=== PATIENT | female | born 1955 ===

== ENCOUNTER → 2020-07-01 | Outpatient (CLI) | payer MEDICARE ==
[~2020-07-01] MED LIST: ZOLPIDEM 5 MG TABLET. PO ONE
--- NOTE | 2020-07-02 09:22 | SLEEP ---
DATE OF STUDY: 07/01/2020 ATTENDING PHYSICIAN: Dr. Jeffrey. The patient is 64 years old who weighs 235 pounds with a BMI of 40. The patient underwent split night study performed at [facility]. During the night study, the patient spent 448 minutes in bed and slept for 366 minutes with a sleep efficiency of 82%. Sleep latency was 50 minutes with an absent REM sleep. Sleep architecture showed increased stage 1 and stage 2 sleep, normal slow wave and absent REM sleep. During the initial diagnostic portion of the study, the patient slept for 91 minutes. During that time, there were 1 obstructive apnea, no mixed apneas, 2 central apneas and 37 hypopneas. The patient's AHI was 27 per hour. There was no supine or REM sleep. Nocturnal oximetry study revealed a mean oxygen saturation of 90% with the lowest of 86%; 46% of the time, oxygen saturation remained between 80% and 89%. There was a pattern of sustained nocturnal hypoxia. No significant PLMs seen. EKG monitoring revealed mean heart rate of 89 beats per minute, no sustained arrhythmias observed. The patient was started on CPAP at 5 cm water and titrated up to 15 cm water. At the final pressure, the patient slept for 90 minutes. The patient had supine sleep, but no REM sleep. The patient's AHI was reduced to 1 per hour and oxygen saturation remained above 88%. IMPRESSION: 1. Moderate obstructive sleep apnea at an AHI of 27 per hour. Absence of supine and REM sleep during the diagnostic portion can underestimate the severity of sleep apnea. 2. Nocturnal hypoxia secondary to combination of sleep apnea and hypoventilation. 3. No clinically significant periodic limb movements. RECOMMENDATIONS: 1. CPAP at 15 cm water should be used on a nightly basis. It completely eliminated the patient's sleep apnea. The patient used medium size nasal pillows. 2. Follow up in 4-6 weeks to assess compliance and to document clinical improvement with CPAP. 3. Weight loss is advised. 4. Avoid [employer] depressants. 5. Cautioned regarding driving until symptoms of sleep apnea resolve with the use of CPAP. JAREK DUARTE MD DR: MARITA/danii JOB#: [id number] / [id number] SERGO Santana MD
== END ==
LOC: SLPLAB 18:54
PROVIDERS: ATTEND Internal Medicine Critical Care Medicine
DX: G47.33 Obstructive sleep apnea (adult) (pediatric) (principal)
CPT/HCPCS: 95810